=== PATIENT | female | born 1995 | race Caucasian/White ===

== ENCOUNTER 2017-08-20 08:58 | Emergency (ER) | payer MEDICAID ==
[~2017-08-20] VITALS: Ht 162.6 cm; Wt 89.8 kg
[2017-08-20 09:07] VITALS: BP 117/89; Ht 162.6 cm; Wt 89.8 kg
== END 2017-08-20 11:08 | disposition home or self-care (01) ==
LOC: ED 08:58
DX: S93.401A Sprain of unspecified ligament of right ankle, initial encounter (principal); W10.1XXA Fall (on)(from) sidewalk curb, initial encounter; Y93.89 Activity, other specified; Y92.89 Other specified places as the place of occurrence of the external cause; Y99.8 Other external cause status

== ENCOUNTER 2019-09-25 00:52 | Emergency (ER) | payer OTHER ==
[~2019-09-25] VITALS: Ht 162.6 cm; Wt 104.8 kg
[2019-09-25 01:02] VITALS: Ht 162.6 cm; Wt 104.8 kg
[2019-09-25 01:45] VITALS: BP 121/60
== END 2019-09-25 01:45 | disposition home or self-care (01) ==
LOC: ED 00:52
DX: S63.502A Unspecified sprain of left wrist, initial encounter (principal); W17.89XA Other fall from one level to another, initial encounter; Y93.89 Activity, other specified; Y92.89 Other specified places as the place of occurrence of the external cause; Y99.8 Other external cause status
CPT/HCPCS: A4570